=== PATIENT | female | born 1950 ===

== ENCOUNTER 2020-09-04 14:03 | Outpatient (CLI) | payer OTHER | END 2020-09-04 14:56 | disposition home or self-care (01) | LOC: OFIC 805 14:03 | PROVIDERS: ATTEND Otolaryngology Otology & Neurotology | DX: H93.8X2 Other specified disorders of left ear (principal); H69.82 Other specified disorders of Eustachian tube, left ear; H74.8X2 Other specified disorders of left middle ear and mastoid ==